=== PATIENT | male | born 1965 | race Two or more races ===

== ENCOUNTER 2023-08-24 21:51 | Inpatient (IN) | payer BC, OTHER ==
[~2023-08-24] VITALS: Ht 190.5 cm; Wt 83.5 kg
[2023-08-24] MEDS ORDERED: IV NS 0.9% 1,000 ML BAG IV ONE (22:30)
[2023-08-24 23:21] LABS: BASOPHILS % (AUTO) 0.2 % (0.0-2.0); EOSINOPHILS # (AUTO) 0.1 K/uL (0.0-0.7); EOSINOPHILS % (AUTO) 0.4 % (0.0-6.0); HEMATOCRIT 35 % (39-51); HEMOGLOBIN 11.7 g/dL (13.5-17.5); LYMPHOCYTES # (AUTO) 1.1 K/uL (0.8-4.8); LYMPHOCYTES % (AUTO) 8.4 % (20.0-44.0); MEAN CORPUSCULAR HEMOGLOBIN 32 PG (26.0-33.0); MEAN CORPUSCULAR HGB CONC 34 g/dl (31.0-36.0); MEAN CORPUSCULAR VOLUME 96 fL (80-96); MONOCYTES # (AUTO) 1.1 K/uL (0.1-1.30); MONOCYTES % (AUTO) 8.8 % (2.0-12.0); NEUTROPHILS # (AUTO) 10.5 K/uL (1.8-8.9); NEUTROPHILS % (AUTO) 82.2 % (43.0-81.0); PLATELET COUNT (AUTO) 299 K/uL (150-450); RED BLOOD CELL COUNT(AUTO) 3.62 MIL/uL (4.5-6.0); RED CELL DISTRIBUTION WIDTH 16.1 % (11.5-15.0); WHITE BLOOD COUNT (AUTO) 12.8 K/uL (4.3-11.0)
[2023-08-24 23:31] LABS: CARBON DIOXIDE 21 mmol/L (21-32); CHLORIDE 96 mmol/L (98-107); CREATININE 1.6 mg/dL (0.6-1.3); GLUCOSE 142 mg/dL (74-106); POTASSIUM 3.7 mmol/L (3.5-5.1); SODIUM SERUM 130 mmol/L (136-145); UREA NITROGEN, BLOOD 29 mg/dL (7-18)
[2023-08-24 23:34] LABS: INR 0.99 (0.91-1.10); PARTIAL THROMBOPLASTIN TIME 31.2 SEC (24.3-34.3); PROTHROMBIN TIME 10.5 SECS (9.2-11.1)
[2023-08-24 23:37] LABS: LACTIC ACID 1.1 mmol/L (0.4-2.0)
[2023-08-24 23:44] LABS: ALANINE AMINOTRANSFERASE 30 U/L (12-78); ALBUMIN 2.9 g/dL (3.4-5.0); ALKALINE PHOSPHATASE 75 U/L (46-116); ASPARTATE AMINOTRANSFERASE 21 U/L (15-37); BILIRUBIN,DIRECT 0.2 mg/dL (0.0-0.2); BILIRUBIN,TOTAL 0.6 mg/dL (0.2-1.0); TOTAL PROTEIN, SERUM 7.3 g/dL (6.4-8.2)
[2023-08-25 00:23] LABS: APPEARANCE,URINE CLEAR (CLEAR); BILIRUBIN,URINE NEGATIVE (NEGATIVE); BLOOD, URINE NEGATIVE Ery/uL (NEGATIVE); COLOR,URINE YELLOW (YELLOW); KETONES,URINE NEGATIVE (NEGATIVE); LEUKOCYTE ESTERASE ,URINE NEGATIVE (NEGATIVE); NITRITE, URINE NEGATIVE (NEGATIVE); PROTEIN,URINE 1+ mg/dl (NEGATIVE); UGLUCOSE NEGATIVE (NEGATIVE)
[2023-08-25] MEDS ORDERED: ONDANSETRON HCL/PF 4 MG/2 ML VIAL IVP PRN (00:30)
[2023-08-25] MEDS ORDERED: MORPHINE SULFATE INJ 2 MG/ML DISP.SYRIN IV PRN (00:30)
[2023-08-25] MEDS ORDERED: hydrALAZINE HCL IV 20 MG VIAL IV PRN (00:30)
[2023-08-25] MEDS ORDERED: IV NS 0.9% 1,000 ML IV SCH (00:30)
[2023-08-25] MEDS ORDERED: ACETAMINOPHEN 325 MG TABLET PO PRN (00:30)
[2023-08-25] MEDS ORDERED: CEFEPIME 2 GM in IV D5W 100 ML IV ONE (01:30)
[2023-08-25] MEDS ORDERED: VANCOMYCIN 2 GM in IV D5W 500 ML IV ONE (02:00)
[2023-08-25] MEDS: ENOXAPARIN SODIUM 40 MG/0.4 ML DISP.SYRIN SQ SCH ×2 (03:03→21:00)
[2023-08-25] MEDS ORDERED: VANCOMYCIN 1 GM /D5W 250 ML PB IV ONE (03:30)
[2023-08-25] MEDS ORDERED: CEFEPIME 1 GM VIAL ONE (03:31)
[2023-08-25 04:00] VITALS: BP 131/99; TEMP 98.8; O2SAT 97
[2023-08-25] MEDS: clonazePAM 1 MG TABLET PO SCH ×2 (08:43→16:07)
[2023-08-25 08:54] LABS: CREATININE 1.4 mg/dL (0.6-1.3); POTASSIUM 3.6 mmol/L (3.5-5.1)
[2023-08-25 09:00] LABS: ALBUMIN 2.8 g/dL (3.4-5.0); BILIRUBIN,TOTAL 0.7 mg/dL (0.2-1.0); TOTAL PROTEIN, SERUM 7.3 g/dL (6.4-8.2)
[2023-08-25 09:34] VITALS: BP 131/99; TEMP 99; O2SAT 95
[2023-08-25] MEDS ORDERED: DIAZ10TA PO (09:38)
[2023-08-25] MEDS ORDERED: CLON0.1T PO (09:38)
[2023-08-25] MEDS ORDERED: BUPR2TAB3 SL ×2 (09:38)
[2023-08-25] MEDS ORDERED: ACET-2605 PO (09:38)
[2023-08-25] MEDS ORDERED: CITA20TA16 PO (09:38)
[2023-08-25] MEDS ORDERED: GABA600T12 PO (09:38)
[2023-08-25 12:57] VITALS: BP 124/76; TEMP 98.6; O2SAT 95
[2023-08-25] MEDS ORDERED: VANCOMYCIN 1 GM in IV D5W 250ml IV SCH (14:00)
[2023-08-25] MEDS: IV NS 0.9% 1,000 ML IV PRN (16:09)
[2023-08-25 16:50] VITALS: BP 111/62; TEMP 97.7; O2SAT 95
[2023-08-25 20:00] VITALS: BP 119/79; TEMP 97.5; O2SAT 98
[2023-08-26] VITALS: BP 122/75; TEMP 98.3; O2SAT 97
[2023-08-26] MEDS: CEFEPIME 2 GM in IV D5W 100 ML IV SCH (00:02)
[2023-08-26] MEDS: LORAZEPAM INJ 2 MG/ML VIAL IV PRN ×2 (00:03→21:32)
[2023-08-26 04:00] VITALS: BP 118/79; TEMP 97.8; O2SAT 97
[2023-08-26] MEDS: IV NS 0.9% 1,000 ML IV PRN (05:50)
[2023-08-26 05:52] LABS: BASOPHILS # (AUTO) 0.1 K/uL (0.0-0.2); EOSINOPHILS # (AUTO) 0.1 K/uL (0.0-0.7); EOSINOPHILS % (AUTO) 0.6 % (0.0-6.0); HEMATOCRIT 33 % (39-51); HEMOGLOBIN 11.2 g/dL (13.5-17.5); LYMPHOCYTES # (AUTO) 1.1 K/uL (0.8-4.8); LYMPHOCYTES % (AUTO) 11.6 % (20.0-44.0); MEAN CORPUSCULAR HEMOGLOBIN 33 PG (26.0-33.0); MEAN CORPUSCULAR HGB CONC 34 g/dl (31.0-36.0); MEAN CORPUSCULAR VOLUME 96 fL (80-96); MONOCYTES # (AUTO) 1.1 K/uL (0.1-1.30); MONOCYTES % (AUTO) 11.6 % (2.0-12.0); NEUTROPHILS # (AUTO) 7.2 K/uL (1.8-8.9); NEUTROPHILS % (AUTO) 75.2 % (43.0-81.0); PLATELET COUNT (AUTO) 234 K/uL (150-450); RED BLOOD CELL COUNT(AUTO) 3.45 MIL/uL (4.5-6.0); RED CELL DISTRIBUTION WIDTH 15.8 % (11.5-15.0); WHITE BLOOD COUNT (AUTO) 9.5 K/uL (4.3-11.0)
[2023-08-26 06:18] LABS: ALBUMIN 2.5 g/dL (3.4-5.0); BILIRUBIN,TOTAL 0.4 mg/dL (0.2-1.0); CREATININE 1.1 mg/dL (0.6-1.3); MAGNESIUM 2.1 mg/dL (1.8-2.4); PHOSPHORUS 2.5 mg/dL (2.5-4.9); POTASSIUM 3.7 mmol/L (3.5-5.1); TOTAL PROTEIN, SERUM 6.9 g/dL (6.4-8.2)
[2023-08-26 06:31] LABS: THYROID STIMULATING HORMONE 1.327 uIU/mL (0.358-3.74); URIC ACID 8.4 mg/dL (2.6-7.2)
[2023-08-26 08:00] VITALS: BP 147/98; TEMP 98.6; O2SAT 97
[2023-08-26] MEDS: clonazePAM 1 MG TABLET PO SCH ×2 (08:29→16:31)
[2023-08-26] MEDS: NICOTINE PATCH (14MG) 14 MG PATCH.TD24 TD SCH (11:22)
[2023-08-26 16:00] VITALS: BP 130/90; TEMP 98.4; O2SAT 96
[2023-08-26 20:00] VITALS: BP 158/97; TEMP 99.1; O2SAT 96
[2023-08-26] MEDS: ENOXAPARIN SODIUM 40 MG/0.4 ML DISP.SYRIN SQ SCH (21:31)
[2023-08-27] MEDS: IV NS 0.9% 1,000 ML IV PRN (00:09)
[2023-08-27] MEDS: CEFEPIME 2 GM in IV D5W 100 ML IV SCH (00:17)
[2023-08-27 04:00] VITALS: BP 114/50; TEMP 98.2; O2SAT 95
[2023-08-27 08:07] LABS: PTH, INTACT 7 pg/mL (15-65)
[2023-08-27] MEDS: clonazePAM 1 MG TABLET PO SCH ×2 (09:55→18:19)
[2023-08-27] MEDS: NICOTINE PATCH (14MG) 14 MG PATCH.TD24 TD SCH (09:55)
[2023-08-27] MEDS ORDERED: CLONIDINE HCL 0.1 MG TABLET PO PRN (10:00)
[2023-08-27] MEDS ORDERED: GABAPENTIN 300 MG CAPSULE PO PRN (10:00)
[2023-08-27] MEDS ORDERED: ACETAMINOPHEN ES 500 MG TABLET PO PRN (10:00)
[2023-08-27 16:00] VITALS: BP 120/55; TEMP 98; O2SAT 95
[2023-08-27] MEDS: BUPRENORPHINE HCL 2 MG TAB.SUBL SL SCH (18:21)
[2023-08-27 20:00] VITALS: BP 149/80; TEMP 99; O2SAT 95
[2023-08-27] MEDS: LORAZEPAM INJ 2 MG/ML VIAL IV PRN (20:18)
[2023-08-27] MEDS: ENOXAPARIN SODIUM 40 MG/0.4 ML DISP.SYRIN SQ SCH (20:22)
[2023-08-28] MEDS: CEFEPIME 2 GM in IV D5W 100 ML IV SCH (01:02)
[2023-08-28 04:00] VITALS: BP 144/92; TEMP 98.8; O2SAT 96
[2023-08-28] MEDS: IV NS 0.9% 1,000 ML IV PRN (04:41)
[2023-08-28 05:48] LABS: BASOPHILS % (AUTO) 0.4 % (0.0-2.0); EOSINOPHILS # (AUTO) 0.1 K/uL (0.0-0.7); EOSINOPHILS % (AUTO) 0.8 % (0.0-6.0); HEMATOCRIT 35 % (39-51); HEMOGLOBIN 11.6 g/dL (13.5-17.5); LYMPHOCYTES % (AUTO) 16.8 % (20.0-44.0); MEAN CORPUSCULAR HEMOGLOBIN 32 PG (26.0-33.0); MEAN CORPUSCULAR HGB CONC 33 g/dl (31.0-36.0); MEAN CORPUSCULAR VOLUME 96 fL (80-96); MONOCYTES % (AUTO) 8.8 % (2.0-12.0); NEUTROPHILS # (AUTO) 8.7 K/uL (1.8-8.9); NEUTROPHILS % (AUTO) 73.2 % (43.0-81.0); PLATELET COUNT (AUTO) 265 K/uL (150-450); RED BLOOD CELL COUNT(AUTO) 3.68 MIL/uL (4.5-6.0); RED CELL DISTRIBUTION WIDTH 16.5 % (11.5-15.0); WHITE BLOOD COUNT (AUTO) 11.9 K/uL (4.3-11.0)
[2023-08-28 06:19] LABS: ALBUMIN 2.7 g/dL (3.4-5.0); BILIRUBIN,TOTAL 0.7 mg/dL (0.2-1.0); CALCIUM, SERUM 9.8 mg/dL (8.5-10.1); CREATININE 1.1 mg/dL (0.6-1.3); MAGNESIUM 1.6 mg/dL (1.8-2.4); PHOSPHORUS 3.6 mg/dL (2.5-4.9); POTASSIUM 3.7 mmol/L (3.5-5.1); TOTAL PROTEIN, SERUM 7.5 g/dL (6.4-8.2)
[2023-08-28] MEDS: NICOTINE PATCH (14MG) 14 MG PATCH.TD24 TD SCH (08:58)
[2023-08-28] MEDS: clonazePAM 1 MG TABLET PO SCH ×2 (08:58→16:31)
[2023-08-28] MEDS: BUPRENORPHINE HCL 2 MG TAB.SUBL SL SCH ×2 (08:59→17:07)
[2023-08-28] MEDS: CITALOPRAM HYDROBROMIDE 20 MG TABLET PO SCH (08:59)
[2023-08-28] MEDS ORDERED: MAGNESIUM OXIDE 400 MG TABLET PO ONE (10:00)
[2023-08-28 10:21] VITALS: BP 143/100; TEMP 98.8; O2SAT 95
[2023-08-28 13:02] VITALS: BP 140/95; TEMP 98.2; O2SAT 95
[2023-08-28 13:07] LABS: *SPE A/G RATIO 0.8 (0.7-1.7); *SPE ALBUMIN 2.6 g/dL (2.9-4.4); *SPE ALPHA-1-GLOBULIN 0.4 g/dL (0.0-0.4); *SPE ALPHA-2-GLOBULIN 1.1 g/dL (0.4-1.0); *SPE GLOBULIN, TOTAL 3.3 g/dL (2.2-3.9); *SPE M-SPIKE Not Observed g/dL (Not Observed); *SPE PROTEIN TOTAL 5.9 g/dL (6.0-8.5); *SPEGAMMA GLOBULIN 0.8 g/dL (0.4-1.8)
[2023-08-28 20:00] VITALS: BP 134/73; TEMP 97.7; O2SAT 98
[2023-08-28] MEDS ORDERED: CEFTRIAXONE 1 G in IV D5W 50 ML IV SCH (20:00)
[2023-08-28] MEDS: ENOXAPARIN SODIUM 40 MG/0.4 ML DISP.SYRIN SQ SCH (20:24)
[2023-08-29 04:00] VITALS: BP 134/79; TEMP 97.8; O2SAT 98
[2023-08-29 05:57] LABS: CALCIUM, SERUM 9.6 mg/dL (8.5-10.1); MAGNESIUM 1.7 mg/dL (1.8-2.4); POTASSIUM 3.9 mmol/L (3.5-5.1)
[2023-08-29] MEDS ORDERED: MAGNESIUM OXIDE 400 MG TABLET PO SCH (07:30)
[2023-08-29] MEDS: CITALOPRAM HYDROBROMIDE 20 MG TABLET PO SCH (08:19)
[2023-08-29] MEDS: NICOTINE PATCH (14MG) 14 MG PATCH.TD24 TD SCH (08:19)
[2023-08-29] MEDS: clonazePAM 1 MG TABLET PO SCH (08:20)
[2023-08-29] MEDS: BUPRENORPHINE HCL 2 MG TAB.SUBL SL SCH (08:21)
[2023-08-29] MEDS ORDERED: MAGNESIUM OXIDE 400 MG TABLET PO ONE (11:00)
== END 2023-08-29 12:08 | disposition home or self-care (01) | DRG 871 ==
LOC: ER 21:53 → TELE1 08-25 00:57 → MEDSG1 08-26 09:52
PROVIDERS: ADMIT Internal Medicine; ATTEND Internal Medicine
DX: A41.50 Gram-negative sepsis, unspecified (principal); G92.9 Unspecified toxic encephalopathy; N17.9 Acute kidney failure, unspecified; N39.0 Urinary tract infection, site not specified; E87.1 Hypo-osmolality and hyponatremia; M48.56XA Collapsed vertebra, not elsewhere classified, lumbar region, initial encounter for fracture; G90.8 Other disorders of autonomic nervous system; F41.9 Anxiety disorder, unspecified; F10.11 Alcohol abuse, in remission; Z79.899 Other long term (current) drug therapy; I11.9 Hypertensive heart disease without heart failure; N28.1 Cyst of kidney, acquired; G89.29 Other chronic pain; Z72.0 Tobacco use
CPT/HCPCS: 36415; 71045-TC; 80048-TC; 80053-TC; 80076-TC; 82550-TC; 83605-TC; 83735-TC; 83970; 84100-TC; 84155; 84165; 84443-TC; 84484-TC; 84550-TC; 85025-TC; 85730-TC; 87040-TC; 87086-TC; 87186-TC; 93307-TC; 97112-TC; 97116-TC; 97530-TC; A4223; G0378; J0692; J0696; J1650; J2060; J2270; J3370; J7030; J7060